=== PATIENT | male | born 1980 | race Hispanic/Latino ===

== ENCOUNTER 2022-10-26 08:57 | Emergency (ER) | payer SELFPAY ==
[2022-10-26 08:58] VITALS: BP 163/97; PULSE 64; RESP 18; TEMP 36.4; O2SAT 100; BMI 32.8
--- NOTE | 2022-10-26 09:06 | CT_ITS ---
HISTORY: Kidney Stone-RIGHT FLANK PAIN. TECHNIQUE: Helically acquired images were obtained of the abdomen and pelvis without oral or IV contrast. A radiation dose optimization technique was used for this scan. 463 images. COMPARISON: None.. FINDINGS: LOWER CHEST: 1 x 1.8 cm irregular right lower lobe opacity. BOWEL: Bowel including appendix nondilated. No focal pericolonic inflammatory change. PERITONEUM: No significant free fluid. LIVER: Fatty infiltration. 19.8 cm in length. GALLBLADDER/BILIARY TREE: Gallbladder present. SPLEEN/PANCREAS/ADRENAL GLANDS: Nonenlarged. KIDNEYS AND URETERS: Mild right perinephric inflammation and mild hydroureteronephrosis secondary to a 2 mm ureterovesical junction calculus. 2 mm right lower pole calculus. No left nephrolithiasis or hydronephrosis. VESSELS: No abdominal aortic aneurysm. PELVIC ORGANS: Unremarkable. BONES: Intact. CT/Abdomen/Pelvis without Cont IMPRESSION: 1 x 1.8 cm irregular right lower lobe opacity, likely pneumonia or pneumonitis. Consider follow-up to resolution to exclude developing pulmonary nodule. Mild right hydronephrosis secondary to a 2 mm UVJ calculus. Right nephrolithiasis. Hepatic steatosis with hepatomegaly. Electronically Signed: Misti Lezama MD at 9:57 EDT ,
--- NOTE | 2022-10-26 09:07 | EDS_ITS ---
HPI History of Present Illness Chief Complaint: Flank Pain Narrative Narrative: 42-year-old male presenting with right flank pain. Started about 30 minutes ago. He states he feels sharp and radiates to the right inguinal region. He denies a history of kidney stones. He states he does have the sensation that he does need to urinate. He has not had a fever or chills. Patient is [place]- speaking and has a friend who is interpreting for him. 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 Patient has no constipation or diarrhea. Denies significant medical history. PFSH PFSH Medical History no medical history Home Medications hydrocodone-acetaminophen 5-325mg 5mg-325mg 1 tab PO Q6H PRN pain 3 days #12 TABLETS 10/26/22 [Rx Last Taken Unknown] ondansetron 4 mg disintegrating tablet 4 mg PO Q8H PRN PRN Nausea #14 tabs 10/26/22 [Rx Last Taken Unknown] Allergy/AdvReac Type Severity Reaction Status Date / Time No Known Allergies Allergy Verified 10/26/22 08:58 Surgical History no surgical history Social History Smoking Status: Never smoker ROS ROS ED Constitutional Constitutional ED: Denies chills, fever(s) or sweats Eyes Eyes: Denies blurry vision or change in vision ENT ENT ED: Denies ear pain or sore throat Cardiovascular Cardiovascular: Denies chest pain, palpitations or racing heartbeat Respiratory/Chest Respiratory/Chest: Denies cough, dyspnea or sputum Gastrointestinal Gastrointestinal: Reports abdominal pain; Denies constipation, diarrhea, nausea or vomiting Genitourinary Genitourinary ED: Reports dysuria; Denies hematuria or urinary frequency Musculoskeletal Musculoskeletal: Reports back pain; Denies arthralgias, myalgias or neck pain Integumentary Denies abscess, Abrasions or rash Neurologic Neurologic: Denies headache(s), paresthesias or weakness Psychiatric Psychiatric: Denies anxiety, depression, suicidal ideation or suicidal thoughts Endocrine Endocrinology: Denies polydipsia or polyuria EXAM Physical Exam Const Vital Signs: 10/26/22 08:58 Temperature 97.6 F L Temperature Source Temporal Pulse Rate 64 Respiratory Rate 18 Blood Pressure 163/97 H Blood Pressure Mean 119 Pulse Ox 100 Oxygen Delivery Method Room Air Positive well nourished General Appearance ED: Negative for pallor HEENT Reports moist mucous membranes Eyes PERRL and EOMs intact bilaterally Resp normal respiratory effort Cardio regular rate and regular rhythm GI Palpation: tender RLQ Bladder / Kidney Exam: CVA tenderness right Neuro oriented x3 and CN's II-XII intact bilaterally Sensorium / Orientation: alert Motor Exam: strength 5/5 throughout Psych mental status grossly normal Skin General Skin Exam: Negative for jaundice or pallor MDM MDM MDM Narrative Medical decision making narrative: Patient presenting with acute onset right flank pain. Most likely this represents a kidney stone. Differential includes appendicitis, diverticulitis, colitis, muscle strain, constipation, UTI, pyelonephritis. CBC will be obtained to assess white blood cell count, hemoglobin, platelets. BMP to assess renal function electrolytes. Urinalysis to assess for UTI. CT abdomen pelvis will be obtained to rule out kidney stone. Patient medicated with morphine, Zofran, Toradol as well as a liter normal saline. CBC shows white blood cell count of 12.3. Hemoglobin hematocrit are stable. Platelets are normal. Renal function and electrolytes within normal limits. Urinalysis negative for infection but does show occult blood. CT of the abdomen pelvis was obtained and showed a 2 mm UVJ stone. Patient was given a second dose of morphine. He is given prescription for [place] and Zofran for home. I gave him follow-up with urology. Return precautions were discussed. Of note the patient CT showed that he had a right lower lobe opacity likely inflammatory or infectious. Patient denies any cough, fever, shortness of breath. I do not believe he needs antibiotics currently. Impression: 1. 2 mm UVJ stone 2. hematuria 3. Nausea 4. Right lower lobe opacity Lab Data Labs: Laboratory Results - last 24 hr 10/26/22 10/26/22 09:12 09:55 WBC 12.3 H RBC 4.59 L Hgb 14.8 Hct 45.4 MCV 98.9 H MCH 32.2 H MCHC 32.6 RDW Std Deviation 47.5 H RDW Coeff of Tami 13.0 Plt Count 299 MPV 9.9 Immature Gran % (Auto) 0.500 Neut % (Auto) 50.8 Lymph % (Auto) 35.8 [place] % (Auto) 6.4 Eos % (Auto) 6.3 H Baso % (Auto) 0.2 Absolute Neuts (auto) 6.3 Absolute Lymphs (auto) 4.41 Nucleated RBC % 0 Sodium 140 Potassium 4.0 Chloride 108 H Carbon Dioxide 25.0 Anion Gap 7 BUN 16 Creatinine 1.27 Estim Creat Clear Calc 59.74 Est GFR (MDRD) Af Amer 79 Est GFR (MDRD) Non-Af 65 BUN/Creatinine Ratio 12.6 Glucose 177 H Calcium 9.0 Urine Color Yellow Urine Clarity Clear Urine pH 5.0 Ur Specific [place] 1.030 Urine Protein 15 H Urine Glucose (UA) Normal Urine Ketones Negative Urine Occult Blood 10 H Urine Nitrite Negative Urine Bilirubin Negative Urine Urobilinogen Normal Ur Leukocyte Esterase Negative Urine RBC 0-5 SEEN Urine WBC 0 SEEN Ur Squamous Epith Cells 0 SEEN Urine Bacteria 0 SEEN Urine Mucus 0 SEEN Radiography Diagnostic Testing: Clinical Impression(s) from Imaging Studies Abdomen/Pelvis CT 10/26/22 09:06 IMPRESSION: 1 x 1.8 cm irregular right lower lobe opacity, likely pneumonia or pneumonitis. Consider follow-up to resolution to exclude developing pulmonary nodule. Mild right hydronephrosis secondary to a 2 mm UVJ calculus. Right nephrolithiasis. Hepatic steatosis with hepatomegaly. Electronically Signed: Misti Lezama MD at 9:57 EDT , Discharge Plan Triage Chief Complaint: Flank Pain ED Provider: Zaid Aguila Dx/Rx/DC Orders Instructions: ED Pulmonary Nodule, Solitary, ED Kidney Stone w/ Colic Prescriptions: New ondansetron 4 mg tablet,disintegrating 4 mg PO Q8H PRN PRN (Reason: Nausea) Qty: 14 0RF hydrocodone-acetaminophen 5-325 mg tablet 1 tab PO Q6H PRN (Reason: pain) 3 Days Qty: 12 0RF Primary Care Provider: Care Physician,No Primary Referrals: Dylan Deutsch MD [Med Staff - Active Staff] - 3-5 Days Care Physician,No Primary [Primary Care Provider] - Disposition Disposition: Home, Self Care
[2022-10-26] MEDS: Ondansetron 4 MG/2 ML Vial IV (09:12)
[2022-10-26] MEDS: Ketorolac 15 MG/ML Vial IV (09:14)
[2022-10-26] MEDS: Morphine 4 MG/ML Syringe IV ×2 (09:14→10:30)
[2022-10-26] MEDS: 0.9% Normal Saline 1,000 ML 999 ML IV (09:17)
[2022-10-26 09:18] LABS: Absolute Lymphocyte Count 4.41 X10^3/uL (0.83-4.51); Absolute Neutrophil Count 6.3 X10^3/uL (2.0-7.7); Basophil# 0.02 X10^3/uL; Basophil% 0.2 % (0-1); Eosinophil# 0.78 X10^3/uL; Eosinophils% 6.3 % (0-5); Hematocrit 45.4 % (40-54); Hemoglobin 14.8 g/dL (13.0-16.5); Lymphocyte # 4.41 X10^3/ul (0.83-4.51); Lymphocyte % 35.8 % (19-41); Mean Corp Hgb Conc 32.6 g/dL (32-36); Mean Corpuscular Hgb 32.2 pg (27.0-32.0); Mean Corpuscular Volume 98.9 fL (80-94); Mean Platelet Vol. 9.9 fl (6.2-12.0); Monocyte# 0.79 X10^3/uL; Monocyte% 6.4 % (0-10); NRBC Flagged by Analyzer 0 % (0-5); Neutrophil # 6.27 X10^3/uL (2.7-7.7); Neutrophil % 50.8 % (47-70); Platelet Count 299 K/mm3 (150-450); RBC Distribution Width SD 47.5 fl (35.1-43.9); Red Blood Count 4.59 M/mm3 (4.6-6.2); White Blood Count 12.3 K/mm3 (4.4-11.0)
[2022-10-26 09:31] LABS: Anion Gap 7 (5-15); BUN 16 mg/dL (7-18); BUN/Creat Ratio 12.6 RATIO (10-20); Chloride 108 mmol/L (98-107); Creatinine, Serum 1.27 mg/dL (0.70-1.30); EST Glomerular Filtration Rate 65 mL/min (>60); Est Glom Filt Rate - Afr Amer 79 mL/min (>60); Estimated Creatinine Clearance 59.74 ml/min; Glucose 177 mg/dL (74-106); Sodium Level 140 mmol/L (136-145)
[2022-10-26 10:01] LABS: Bacteria 0 SEEN /hpf (None Seen); Mucous, Urine 0 SEEN /hpf (<or=2+); Squamous Epithelial Cells - UA 0 SEEN /hpf (0-5); White Blood Cells 0 SEEN /hpf (0-5)
[2022-10-26 10:24] LABS: Color, Urine Yellow (Yellow); Glucose, Dipstick Normal (Normal); Ketone-Dipstick Negative (Negative); Leukocyte Esterase-Dipstick Negative /ul (Negative); Nitrite-Dipstick Negative (Negative); Occult Blood-Urine 10 /ul (Negative); Protein-Dipstick 15 mg/dl (Negative); Urine Bilirubin Dipstick Negative (Negative); Urine Clarity Clear (Clear); Urine Urobilinogen Normal (Normal)
[2022-10-26 10:41] LABS: Red Blood Cells-Urine 0-5 SEEN /hpf (0-5)
[2022-10-26 11:03] VITALS: BP 138/76; PULSE 64; RESP 14; TEMP 36.9; O2SAT 99
== END 2022-10-26 11:23 | disposition home or self-care (01) ==
PROVIDERS: Emergency Provider Student in an Organized Health Care Education/Training Program; Visit Provider Student in an Organized Health Care Education/Training Program
DX: N20.1 Calculus of ureter (principal); R11.0 Nausea; R91.8 Other nonspecific abnormal finding of lung field; R31.9 Hematuria, unspecified
CPT/HCPCS: 74176; 80048; 81001; 85025; 96361; 96374; 96375; 96376; 99283; J7030; A4216; J2405